=== PATIENT | male | born 2000 | race Caucasian/White ===

== ENCOUNTER 2023-09-04 12:31 | Emergency (ER) | payer OTHER, SELFPAY ==
--- NOTE | ~2023-09-04 | XR_ITS ---
EXAMINATION: XR ABDOMEN KUB CLINICAL INDICATION: Abdominal pain, history of obstructive COMPARISON: None available. TECHNIQUE: AP view of the abdomen. FINDINGS: The bowel gas pattern is normal with no evidence of ileus or obstruction. No unusual soft tissue calcifications are noted. The bones are unremarkable. XR/XR KUB IMPRESSION: Unremarkable examination.
[2023-09-04 12:33] VITALS: BP 102/59; PULSE 61; RESP 16; TEMP 36.6; O2SAT 99; BMI 24.4
--- NOTE | 2023-09-04 12:38 | ED.ABDPAIN ---
HPI - Abdominal Pain General Chief Complaint: General Medical Stated Complaint: bowel obstruction ? Time Seen by Provider: 09/04/23 16:03 Source: patient, RN notes reviewed and old records reviewed Mode of arrival: ambulatory Limitations: no limitations History of Present Illness ED Provider: Hortensia ELLIS narrative: 22-year-old male with past medical history significant for bowel obstruction presents for evaluation of constipation. Patient reports for the last 2 weeks he has had difficulty having bowel movements. 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 Related Data Previous Rx's ?Medication ?Instructions ?Recorded polyethylene glycol 3350 17 17 g PO DAILY PRN constipation 2 09/04/23 gram/dose oral powder (ClearLax) weeks #510 grams Allergies Allergy/AdvReac Type Severity Reaction Status Date / Time magnesium hydroxide Allergy Difficulty Verified 09/04/23 12:36 [From Milk of Magnesia] Breathing Review of Systems Constitutional: Denies body ache(s), Denies chills, Denies fever(s) and Denies frequent falls Denies sore throat Cardiovascular: Denies chest pain and Denies dyspnea Respiratory: Denies cough and Denies dyspnea Gastrointestinal: Reports abdominal pain, Denies hematochezia, Reports constipation, Denies nausea and Denies vomiting Musculoskeletal: Denies back pain Skin/Breast: Denies rash Denies frequent falls PMFSH Social History Social History Advance Directives: No Advance Directives Information Provided: Yes Do you have a plan to hurt others: No Plan Physical Exam ED Vital Signs: Vital Signs - 24 hr 09/04/23 12:33 09/04/23 12:51 09/04/23 13:02 Temperature 97.8 F 97.8 F 98.0 F Pulse Rate 61 61 69 Respiratory Rate 16 16 18 Blood Pressure 102/59 L 102/59 L 122/67 Pulse Oximetry 99 99 98 Oxygen Delivery Method Room Air Room Air Room Air 09/04/23 14:08 Temperature 98.0 F Pulse Rate 74 Respiratory Rate 14 Blood Pressure 119/65 Pulse Oximetry 100 Oxygen Delivery Method Room Air BMI result Body Mass Index 24.4 Const General: healthy appearing, comfortable, no acute distress, alert and awake Nutritional Appearance: well nourished Orientation/consciousness: patient oriented x3 HENMT Head: Yes normocephalic and Yes atraumatic Eyes Eyelids: Yes eyelids normal Conjunctivae: conjunctivae normal Sclerae: sclerae normal Corneas: corneas normal Pupils: Equal, round and reactive pupils present EOM: EOMs intact bilaterally Neck Neck: Yes full ROM Resp Effort & Inspection: normal respiratory effort, able to speak in complete sentences and not labored Cardio Rate: regular rate Rhythm: regular rhythm GI Inspection: No distended Palpation (GI): Soft to palpation, not firm, nontender, no guarding and not rigid Auscultation: normoactive bowel sounds Rectal Exam - Male: Yes visual inspection normal (Patient consented to inspection only) Skin General skin exam: elasticity normal Neuro General: patient oriented x3 Cranial nerves: Yes Equal, round and reactive pupils present and Yes Bilaterally intact EOM present Cognition (Neuro): normal cognition Extrem Other: Moving all extremities well without any obvious deformities Course Course Course Narrative: This is a Rapid Medical Examination (RME) performed by Buzz Perez PA-C in triage. Full HPI, ROS, assessment and treatment plan per primary provider in the Main ED. 22 y/o male with history of ?bowel obstruction (never required surgery), who presents for evaluation of spicy mustard colored diarrhea for the last several weeks associated with abdominal pains. Had a normal BM today. He is worried about a bowel obstruction. No vomiting. Plan: KUB and labs Medical Decision Making Medical Decision Making MDM Narrative: 22-year-old male presents for evaluation of constipation. He has concerned for a bowel obstruction reports having had a bowel movement this morning. He is still passing flatus. Patient's KUB shows constipation but no evidence of bowel obstruction or ileus. The patient's symptoms are likely related to constipation. The patient consented to rectal inspection only which does not show any abnormalities. No evidence of hemorrhoids. Plan to treat constipation conservatively with MiraLax, increase fluids, increase fiber and the patient will be given GI follow-up. He currently has no abdominal pain or tenderness, less likely acute appendicitis. Differential Diagnosis Differential Diagnoses: The differential diagnosis associated with the presentation includes Constipation Ileus Bowel obstruction Enteritis Acute appendicitis less likely Lab Data MDM Lab Attestation statement: I reviewed the patient's lab results. No leukocytosis. The patient does have a mild anemia with a hemoglobin 12.5 hematocrit 36.8. Unclear etiology but no previous for comparison. MCV is within normal limits, normal platelet count. Electrolytes within normal limits 09/04/23 12:47 09/04/23 12:47 Labs: Lab Results 09/04/23 09/04/23 Range/Units 12:47 13:12 WBC 6.2 (4.8-10.8) X10*3/uL RBC 4.32 L (4.60-5.80) X10*6/uL Hgb 12.5 L (14.0-18.0) g/dl Hct 36.8 L (42.0-52.0) % MCV 85.2 (80.0-98.0) fL MCH 28.9 (27.0-33.0) pg MCHC 34.0 (31.0-36.0) g/dl RDW 12.9 (11.0-16.0) % Plt Count 260 (160-400) X10*3/uL MPV 10.0 (9.4-12.4) fL Immature Gran % (Auto) 0.2 (0.0-0.4) % Neut % (Auto) 44.4 L (45-73) % Lymph % (Auto) 44.2 H (20-40) % [place] % (Auto) 6.8 (2-11) % Eos % (Auto) 3.9 (0-4) % Baso % (Auto) 0.5 (0-2) % Lymph # (Auto) 2.7 (1.2-4.9) X10*3/uL [place] # (Auto) 0.4 (0.1-1.2) X10*3/uL Eos # (Auto) 0.2 (0.0-0.4) X10*3/uL Baso # (Auto) 0.0 (0.0-0.2) X10*3/uL Abs Immat Gran (auto) 0.01 (0.00-0.03) X10*3/uL Absolute Neuts (auto) 2.8 (2.0-8.3) x10*3/uL Absolute Nucleated RBC 0.000 (0.0-0.012) X10*3/uL Nucleated RBC % (auto) 0.0 (0.0-0.2) /100WBC Sodium 139 (135-145) mmol/L Potassium 4.1 (3.3-5.1) mmol/L Chloride 106 (96-108) mmol/L Carbon Dioxide 24 (22-29) mmol/L Anion Gap 13 (12-20) BUN 8 L (9-16) mg/dL Creatinine 0.87 (0.5-1.4) mg/dL Estim Creat Clear Calc 148.6 Estimated GFR > 60 Random Glucose 101 (60-115) mg/dL Calcium 9.7 (8.4-10.2) mg/dL Magnesium 2.1 (1.6-2.6) mg/dL Total Bilirubin 0.2 (0.0-1.0) mg/dL Direct Bilirubin < 0.2 (0.0-0.5) mg/dL AST 14 (5-37) U/L ALT 18 (0-40) U/L Alkaline Phosphatase 82 (39-117) U/L Total Protein 7.8 (6.5-8.0) g/dL Albumin 4.5 (3.5-5.0) g/dL Lipase 12 (8-78) U/L Urine Color Yellow Urine Appearance Clear Urine pH 6.0 (5.0-9.0) Ur Specific Preston <= 1.005 (1.005-1.025) Urine Protein Negative (Neg-Trace) mg/dL Urine Glucose (UA) Negative (Negative) mg/dL Urine Ketones Negative (Negative) mg/dL Urine Blood Negative (Negative) Urine Nitrite Negative (Negative) Ur Leukocyte Esterase Negative (Negative) Discharge Plan Discharge Clinical Impression: Constipation Patient Disposition: Home, Self-Care Instructions: Constipation (ED) Additional Instructions: Your workup in the ER today was reassuring. Your x-ray showed constipation but no evidence of bowel obstruction or ileus I recommend increasing water intake and fiber intake in your diet I recommend taking MiraLax every night for the next 2 weeks Follow-up with GI for continued symptoms, return to the ER for any new symptoms or worsening symptoms Prescriptions: New polyethylene glycol 3350 [ClearLax] 17 gram/dose powder 17 g PO DAILY PRN (Reason: constipation) 14 Days Qty: 510 0RF Referrals: Amara Laguna MD [Physician] - (chronic constipation) Print Language: [place]
[2023-09-04 12:51] VITALS: BP 102/59; PULSE 61; RESP 16; TEMP 36.6; O2SAT 99
[2023-09-04 13:01] LABS: MANUAL DIFF FLAG NO
[2023-09-04 13:02] VITALS: BP 122/67; PULSE 69; RESP 18; TEMP 36.7; O2SAT 98
[2023-09-04 13:02] LABS: Basophils Percent Auto 0.5 % (0-2); Eosinophils Absolute Auto 0.2 X10*3/uL (0.0-0.4); Eosinophils Percent Auto 3.9 % (0-4); Hematocrit 36.8 % (42.0-52.0); Hemoglobin 12.5 g/dl (14.0-18.0); Imm Gran Abs Auto 0.01 X10*3/uL (0.00-0.03); Imm Gran Pct Auto 0.2 % (0.0-0.4); Lymphocytes Absolute Auto 2.7 X10*3/uL (1.2-4.9); Lymphocytes Percent Auto 44.2 % (20-40); Mean Corpuscular Hemoglobin 28.9 pg (27.0-33.0); Mean Corpuscular Volume 85.2 fL (80.0-98.0); Monocytes Absolute Auto 0.4 X10*3/uL (0.1-1.2); Monocytes Percent Auto 6.8 % (2-11); Neutrophils Absolute Auto 2.8 x10*3/uL (2.0-8.3); Neutrophils Percent Auto 44.4 % (45-73); Platelet Count 260 X10*3/uL (160-400); Red Blood Count 4.32 X10*6/uL (4.60-5.80); Red Cell Distribution Width 12.9 % (11.0-16.0); White Blood Count 6.2 X10*3/uL (4.8-10.8)
[2023-09-04 13:19] LABS: Alanine Aminotransferase 18 U/L (0-40); Albumin Level 4.5 g/dL (3.5-5.0); Alkaline Phosphatase 82 U/L (39-117); Anion Gap 13 (12-20); Aspartate Amino Transferase 14 U/L (5-37); Bilirubin Direct < 0.2 mg/dL (0.0-0.5); Bilirubin Total 0.2 mg/dL (0.0-1.0); Blood Urea Nitrogen 8 mg/dL (9-16); Calcium 9.7 mg/dL (8.4-10.2); Carbon Dioxide 24 mmol/L (22-29); Chloride 106 mmol/L (96-108); Creatinine Clr Calc Pharmacy 148.6; Estimated Glomerular Filt Rate > 60; Glucose Random 101 mg/dL (60-115); Lipase 12 U/L (8-78); Magnesium 2.1 mg/dL (1.6-2.6); Potassium 4.1 mmol/L (3.3-5.1); Sodium 139 mmol/L (135-145); Total Protein 7.8 g/dL (6.5-8.0)
[2023-09-04 13:25] LABS: Appearance Urine Clear; Color Urine Yellow; Glucose Urine UA Negative (Negative); Leukocyte Esterase Urine Negative (Negative); Nitrite Urine Negative (Negative); Specific Gravity - Urine <= 1.005 (1.005-1.025); Urine Blood Negative (Negative); Urine Ketones Negative (Negative); Urine Protein Negative (Neg-Trace)
[2023-09-04 14:08] VITALS: BP 119/65; PULSE 74; RESP 14; TEMP 36.7; O2SAT 100
[2023-09-04 17:08] VITALS: BP 115/66; PULSE 71; RESP 16; TEMP 36.6; O2SAT 97
== END 2023-09-04 17:09 | disposition home or self-care (01) ==
PROVIDERS: Physician Assistant; Emergency Provider Emergency Medicine
DX: K59.00 Constipation, unspecified (principal); K62.89 Other specified diseases of anus and rectum; Z79.899 Other long term (current) drug therapy
CPT/HCPCS: 36415; 74018; 80048; 80076; 81003; 83690; 83735; 85025; 99283; 99284

== ENCOUNTER 2023-12-23 15:01 | Emergency (ER) | payer OTHER, SELFPAY ==
--- NOTE | ~2023-12-23 | CT_ITS ---
EXAMINATION: CT HEAD ANGIOGRAPHY WITH IV CONTRAST CLINICAL INFORMATION: venogram. severe headache, exogenous hormone suppl COMPARISON: None. TECHNIQUE: Unenhanced CT of the head; venous phase CT venography IV contrast enhanced CT venography of the head with 3-D angiographic reformatted images processed on the radiologist workstation Intravenous Contrast: Omnipaque [address] examination was performed using dose optimization techniques as appropriate, variously including the following: *Automated exposure control *Adjustment of mA and/or kV according to patient size (this includes techniques or standardized protocols for targeted exams where dose is matched to indication/reason for exam; i.e. extremities or head) *Use of iterative reconstruction technique DLP: 1500 mGy-cm FINDINGS: Unenhanced CT of the head: No intracranial hemorrhage, tumors or acute infarcts identified. The ventricles and sulci are normal in size and configuration. No focal parenchymal lesions of the brain or abnormal extra-axial fluid collections identified. The orbits and globes are normal in appearance. No extra cranial soft tissue inflammatory changes. No significant opacification of the visualized paranasal sinuses, mastoid air cells and middle ear cavities. CT venography: Normal intraluminal opacification is noted in the visualized extracranial internal jugular vein segments. Normal intraluminal opacification noted within the sigmoid, transverse and superior sagittal sinuses. Coronal intraluminal opacification noted in the straight sinus vein of Jacob. Normal intraluminal opacification noted in the visualized components of the internal cerebral veins and foraminal stripe remains. No findings suspicious for cortical vein thromboses are noted. Venous phase images demonstrate no abnormal enhancement in the brain. The left transverse sinus and left sigmoid sinus are dominant. Visualized components of the [place] are grossly normal in appearance. No gross aneurysms or large vessel arterial occlusions noted. CT/CT angio head IMPRESSION: Unenhanced CT of the head: Normal. CT venography of the head: Normal. No evidence of dural sinus thromboses. No evidence of cortical vein or deep internal cerebral vein thrombosis. Patent transverse and sigmoid dural sinuses. Patent superior sagittal sinus. Electronically signed by: Ortega Adams MD 12/23/2023 10:45 PM TYRELL
--- NOTE | ~2023-12-23 | XR_ITS ---
EXAMINATION: XR ABDOMEN KUB CLINICAL INDICATION: Abdominal pain. History of obstruction. COMPARISON: KUB 09/04/2023 TECHNIQUE: AP view of the abdomen. FINDINGS: The bowel gas pattern is nonspecific with scattered stool and gas in colon. No organomegaly. No gross bony abnormality. XR/XR KUB IMPRESSION: Mild constipation. Electronically signed by: Colt Sierra MD 12/23/2023 03:38 PM EST
[2023-12-23 15:13] VITALS: BP 106/71; PULSE 74; RESP 16; TEMP 36.6; O2SAT 97; BMI 31.3
--- NOTE | 2023-12-23 15:13 | ED_ITS ---
HPI - General Adult General Chief complaint: Nausea/Vomiting/Diarrhea Stated complaint: sinus infection?, headache Time Seen by Provider: 12/23/23 17:58 History of Present Illness ED Provider: Geraldo Tuttle MD HPI narrative: 23-year-old female nausea vomiting for 2 days bilateral ear pain and sore throat. Also generalized headache. Patient states this all started about 4 days ago mostly with generalized and retro-orbital headache that started gradually throughout the day after waking up. There was no recent head injury. He started feeling a little bit of bilateral facial pain sinus congestion. [place] generally lightheaded and he has had episodes in the past feeling dizzy and passing out he feels he had this 2 days ago. No palpitations or chest pain associated with this. He has had decreased p.o. intake and had a few episodes of nonbloody nonbilious vomiting today. Denies abdominal pain no skin rash no urinary symptoms. No known underlying personal or family neurologic history . 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 No other medications Related Data Previous Rx's ?Medication ?Instructions ?Recorded polyethylene glycol 3350 17 17 g PO DAILY PRN constipation 2 09/04/23 gram/dose oral powder (ClearLax) weeks #510 grams metoclopramide HCl 10 mg tablet 10 mg PO Q6H PRN nausea and 12/23/23 vomiting #7 tabs Allergies Allergy/AdvReac Type Severity Reaction Status Date / Time magnesium hydroxide Allergy Difficulty Verified 12/23/23 15:15 [From Milk of Magnesia] Breathing PMFSH Social History Social History Smoked in Last 30 Days: No Use of substances other than those prescribed or required for medical reasons: No Advance Directives: No Advance Directives Information Provided: No Do you have a plan to hurt others: No Plan Physical Exam ED Vital Signs: Vital Signs - 24 hr 12/23/23 18:18 12/23/23 20:14 12/23/23 23:26 Temperature 97.7 F 97.7 F 97.7 F Pulse Rate 77 75 75 Respiratory Rate 20 16 16 Blood Pressure 104/67 113/54 L 113/54 L Pulse Oximetry 100 100 100 Oxygen Delivery Method Room Air Room Air Room Air BMI result Body Mass Index 31.3 Const Other: EXAM: Gen: Alert, awake, appears somewhat uncomfortable holding his head with a headache Head: Atraumatic , no injuries abrasions or step-off. Eyes: Anicteric, Normal conjunctiva. EOMI. Pupils 3-4 mm symmetric and reactive. No proptosis, no hyphema, no hypopyon. No pain with extraocular movements ENT: Moist mucosa, no pallor. ?No facial pain or active nasal discharge. Neck: Supple. No meningismus Respiratory: Breathing comfortably, No distress.Clear to auscultation bilaterally, symmetric chest expansion, No wheeze, rales, ronchi. Cardiovascular: Regular rate and rhythm. No murmurs or rub. Well perfused periphery, warm extremities. No edema. ? Abdominal: Soft, no objective distension. No palpable masses or obvious organomegaly. No focal tenderness, no guarding, no rebound tenderness or other peritoneal findings. : No flank tenderness. Neuro: Alert. Gross movement of all extremities intact. ?Negative meningismus Vital signs: See flowsheet Course Course Course Narrative: This is an RME: Additional HPI, ROS, PE not included below will be deferred to primary provider. RME assessment and note performed by: Poonam Izquierdo PA-C This is a [id number]-male, with a hx of bowel obstruction, who presents to the ER with complaints of vomiting x 2 days, nasal congestion, sore throat x 4 days. Reporting headaches, +photophobia. Plan: Labs, KUB, viral swabs Medications Administered Discontinued Medications Generic Name Dose Route Start Last Admin Trade Name Freq PRN Reason Stop Dose Admin Sodium Chloride 1,000 mls @ 999 mls/hr 12/23/23 20:00 12/23/23 21:06 Ns IV 12/23/23 21:00 Infused .Q1H1M CATHY Infusion Dexamethasone Sodium Phosphate 51 mls @ 208 mls/hr 12/23/23 19:51 12/23/23 20:20 10 mg/ Sodium Chloride IV 12/23/23 20:05 Infused ONCE ONE Infusion Iohexol 100 ml 12/23/23 20:47 12/23/23 20:48 Iohexol 350 Mg/Ml 100 Ml Infus..Btl IV 12/23/23 20:48 75 ml ONCE ONE Administration Ketorolac Tromethamine 30 mg 12/23/23 19:50 12/23/23 20:04 Ketorolac Tromethamine 30 Mg/Ml Vial IVPUSH 12/23/23 19:51 30 mg ONCE ONE Administration Metoclopramide HCl 10 mg 12/23/23 19:50 12/23/23 20:05 Metoclopramide Hcl 10 Mg/2 Ml Vial IVPUSH 12/23/23 19:51 10 mg ONCE ONE Administration Medical Decision Making Medical Decision Making [facility] Narrative: Andrew is a 23-year-old male with generalized gradual-onset headache without history of head trauma. Given the testosterone supplementation and the severity of his headache imaging was done including venography without signs of dural thrombus or other acute abnormalities. Patient may be suffering from sinusitis viral syndrome dehydration tension headache or migraine. He had a nonfocal neuro exam. No fever nor any meningismus. Lab Data 12/23/23 15:21 12/23/23 15:21 Labs: Lab Results 12/23/23 Range/Units 15:21 WBC 3.7 L (4.8-10.8) X10*3/uL RBC 4.79 (4.60-5.80) X10*6/uL Hgb 13.8 L (14.0-18.0) g/dl Hct 39.3 L (42.0-52.0) % MCV 82.0 (80.0-98.0) fL MCH 28.8 (27.0-33.0) pg MCHC 35.1 (31.0-36.0) g/dl RDW 12.9 (11.0-16.0) % Plt Count 183 D (160-400) X10*3/uL MPV 10.4 (9.4-12.4) fL Immature Gran % (Auto) 0.3 (0.0-0.4) % Neut % (Auto) 64.4 (45-73) % Lymph % (Auto) 23.3 (20-40) % [place] % (Auto) 11.5 H (2-11) % Eos % (Auto) 0.0 (0-4) % Baso % (Auto) 0.5 (0-2) % Lymph # (Auto) 0.9 L (1.2-4.9) X10*3/uL [place] # (Auto) 0.4 (0.1-1.2) X10*3/uL Eos # (Auto) 0.0 (0.0-0.4) X10*3/uL Baso # (Auto) 0.0 (0.0-0.2) X10*3/uL Abs Immat Gran (auto) 0.01 (0.00-0.03) X10*3/uL Absolute Neuts (auto) 2.4 (2.0-8.3) x10*3/uL Absolute Nucleated RBC 0.000 (0.0-0.012) X10*3/uL Nucleated RBC % (auto) 0.0 (0.0-0.2) /100WBC Sodium 136 (135-145) mmol/L Potassium 4.4 (3.3-5.1) mmol/L Chloride 98 (96-108) mmol/L Carbon Dioxide 25 (22-29) mmol/L Anion Gap 17 (12-20) BUN 9 (9-16) mg/dL Creatinine 0.85 (0.5-1.4) mg/dL Estim Creat Clear Calc 171.9 Estimated GFR > 60 Random Glucose 123 H (60-115) mg/dL Calcium 10.1 (8.4-10.2) mg/dL Magnesium 2.0 (1.6-2.6) mg/dL Total Bilirubin 0.6 (0.0-1.0) mg/dL Direct Bilirubin 0.3 (0.0-0.5) mg/dL AST 39 H (5-37) U/L ALT 53 H (0-40) U/L Alkaline Phosphatase 103 (39-117) U/L Total Protein 8.3 H (6.5-8.0) g/dL Albumin 4.6 (3.5-5.0) g/dL Lipase 9 (8-78) U/L Influenza Type A (PCR) NEGATIVE (Negative) Influenza Type B (PCR) NEGATIVE (Negative) RSV RNA Qual (PCR) NEGATIVE (Negative) SARS-CoV-2 RNA (RT-PCR) NEGATIVE (Negative) S. pyogenes GrpA ALINE Negative (Negative) Discharge Plan Discharge Clinical Impression: Dehydration Patient Disposition: Home, Self-Care Instructions: Dehydration (ED) Additional Instructions: _ DISCHARGE DIAGNOSES: Dehydration Headache of unclear cause possibly tension versus dehydration versus migraine. Could be hormone related HISTORY OF PRESENTATION: ?Several days of generalized and retro-orbital headache associated with facial pain nausea vomiting generalized malaise and fatigue EMERGENCY DEPARTMENT COURSE,TESTS, TREATMENTS: While in the ED today you had a full evaluation and examination with a reassuring neurologic exam. Given the severity of your headache imaging of the brain was done including vascular imaging to rule out blood clot around the brain or in the veins of the brain. We did this because be on testosterone or other hormone medications can put you at risk for this. Luckily we did not see any signs of this on your imaging. Your blood work was reassuring. DISCHARGE MEDICATIONS: ?[We have made no changes to your regular medication regimen] FOLLOW-UP: ?Call your primary or general physician soon as possible to discuss your symptoms, your ED visit and to discuss follow up plans Call your primary doctor we want you to have your doctor repeat your blood counts because there was slightly low lymphocyte level. This needs to be rechecked in about a month once your no longer ill INSTRUCTIONS ?& RETURN PRECAUTIONS: If any symptoms change first call your primary physician, if it is after-hours your primary doctors office should have a provider eco industrial development consultant you can speak with. If the symptoms are severe or very concerning to you then call 911 or return to the ED. If you develop severe worsening headache or ear nausea or vomiting does not resolve with time in a few days you may call your primary doctor return for evaluation. Geraldo Tuttle MD Emergency Physician [facility] Prescriptions: New metoclopramide HCl 10 mg tablet 10 mg PO Q6H PRN (Reason: nausea and vomiting) Qty: 7 0RF No Action polyethylene glycol 3350 [ClearLax] 17 gram/dose powder 17 g PO DAILY PRN (Reason: constipation) 14 Days Qty: 510 0RF Interventions: ED Discharge Assessment Last Done: 12/23/23 23:26 Discharge Date/Time: 12/23/23 23:26 Print Language: British
[2023-12-23 15:25] LABS: MANUAL DIFF FLAG NO
[2023-12-23 15:33] LABS: IDNOW Serial# 58CA691E; Strep A Nucleic Acid Negative (Negative)
[2023-12-23 15:38] LABS: Basophils Percent Auto 0.5 % (0-2); Hematocrit 39.3 % (42.0-52.0); Hemoglobin 13.8 g/dl (14.0-18.0); Imm Gran Abs Auto 0.01 X10*3/uL (0.00-0.03); Imm Gran Pct Auto 0.3 % (0.0-0.4); Lymphocytes Absolute Auto 0.9 X10*3/uL (1.2-4.9); Lymphocytes Percent Auto 23.3 % (20-40); Mean Corpuscular HGB Conc 35.1 g/dl (31.0-36.0); Mean Corpuscular Hemoglobin 28.8 pg (27.0-33.0); Mean Platelet Volume 10.4 fL (9.4-12.4); Monocytes Absolute Auto 0.4 X10*3/uL (0.1-1.2); Monocytes Percent Auto 11.5 % (2-11); Neutrophils Absolute Auto 2.4 x10*3/uL (2.0-8.3); Neutrophils Percent Auto 64.4 % (45-73); Platelet Count 183 X10*3/uL (160-400); Red Blood Count 4.79 X10*6/uL (4.60-5.80); Red Cell Distribution Width 12.9 % (11.0-16.0); White Blood Count 3.7 X10*3/uL (4.8-10.8)
[2023-12-23 16:05] LABS: Alanine Aminotransferase 53 U/L (0-40); Albumin Level 4.6 g/dL (3.5-5.0); Anion Gap 17 (12-20); Aspartate Amino Transferase 39 U/L (5-37); Bilirubin Direct 0.3 mg/dL (0.0-0.5); Bilirubin Total 0.6 mg/dL (0.0-1.0); Blood Urea Nitrogen 9 mg/dL (9-16); Calcium 10.1 mg/dL (8.4-10.2); Carbon Dioxide 25 mmol/L (22-29); Chloride 98 mmol/L (96-108); Creatinine Clr Calc Pharmacy 171.9; Estimated Glomerular Filt Rate > 60; Glucose Random 123 mg/dL (60-115); Lipase 9 U/L (8-78); Potassium 4.4 mmol/L (3.3-5.1); Sodium 136 mmol/L (135-145); Total Protein 8.3 g/dL (6.5-8.0)
[2023-12-23 16:06] LABS: Influenza A PCR NEGATIVE (Negative); Influenza B PCR NEGATIVE (Negative); Resp Syncy Virus RNA Qual PCR NEGATIVE (Negative); SARS COV2 PCR INHOUSE NEGATIVE (Negative)
[2023-12-23 16:24] LABS: Alkaline Phosphatase 103 U/L (39-117)
[2023-12-23 18:18] VITALS: BP 104/67; PULSE 77; RESP 20; TEMP 36.5; O2SAT 100
[2023-12-23] MEDS: Ketorolac Tromethamine 30 MG/ML VIAL IVPUSH (20:04)
[2023-12-23] MEDS: 0.9 % Sodium Chloride 1,000 ML 999 ML IV (20:05)
[2023-12-23] MEDS: dexAMETHasone sod phosphate 10 MG in 0.9 % Sodium Chloride 50 ML 208 MG IV (20:05)
[2023-12-23] MEDS: Metoclopramide HCl 10 MG/2 ML VIAL IVPUSH (20:05)
[2023-12-23 20:14] VITALS: BP 113/54; PULSE 75; RESP 16; TEMP 36.5; O2SAT 100
[2023-12-23] MEDS: iohexoL 350 MG/ML 100 ML INFUS..BTL IV (20:48)
--- NOTE | 2023-12-23 22:22 | PC.NURSE ---
pt resting on exam room stretcher- verbalizes slight improvement in headache pain 4/10 at this time. pt has not vomited since arriving to exam room. Pt awating imaging results for CT head
[2023-12-23 23:26] VITALS: BP 113/54; PULSE 75; RESP 16; TEMP 36.5; O2SAT 100
== END 2023-12-23 23:26 | disposition home or self-care (01) ==
PROVIDERS: Physician Assistant Medical; Emergency Provider Emergency Medicine
DX: E86.0 Dehydration (principal); R11.2 Nausea with vomiting, unspecified; H92.03 Otalgia, bilateral; J02.9 Acute pharyngitis, unspecified; Z03.818 Encounter for observation for suspected exposure to other biological agents ruled out; Z79.899 Other long term (current) drug therapy
CPT/HCPCS: 0241U; 70496; 74018; 80048; 80076; 83690; 83735; 85025; 87651; 96360; 96365; 96375; 99284; 99285; J1100; J1885; J2765; Q9967